=== PATIENT | male | born 1955 | race Caucasian/White ===

== ENCOUNTER 2025-04-05 08:12 | Emergency (ER) | payer OTHER, BC ==
[2025-04-05] MEDS ORDERED: NA CHLORIDE 0.9% 1,000 ML ONE ×2 (08:40→10:03)
--- NOTE | 2025-04-05 08:55 | RAD REPORT ---
EXAMINATION: Head C Spine Mpr Wo Con CLINICAL INDICATION: Male, 69 years old. TRAUMA TECHNIQUE: Axial CT images from the skull base to the vertex without intravenous contrast. Axial CT i mages through the cervical spine were obtained without intravenous contrast. Sagittal and coronal reformatted images were created from the data set. Coronal and sagittal reformatted images were creat ed from the data set. One or more of the following dose reduction techniques were used: Automated exposure control, adjustment of the mA and/or kV according to patient size, and/or iterative reconstr uction. Unless otherwise specified, incidental findings do not require dedicated imaging follow-up. [id number]. COMPARISON: No prior exams FINDINGS: Head: INTRACRANIAL: No acute intracranial hemorrhage. No acute large vascular territory infarct. No hydroce phalus. No mass effect or midline shift. No significant white matter disease. VASCULATURE: No visualized abnormalities in the arteries or dural venous sinuses. SCALP/SKULL: No calvarial fracture identified. No acute soft tissue abnormality. SINUSES: The visualized paranasal sinuses are mostly clear. No significant mastoid fluid. Cervical spine: ALIGNMENT: The cervical spine has normal alignment without scoliosis or spondylolisthesis. BONE: Vertebral body heights are maintained. No aggressive osseous lesions. DEGENERATIVE: Multilevel cervical spondylosis with evidence of bilateral neural foraminal narrowing. No high grade central spinal stenosis. SOFT TISSUE: No significant abnormalities in the soft tissue of the neck. The visualized lung apices are clear. IMPRESSION: No acute intracranial abnormality. No acute fracture or traumatic malalignment of the cervical spine.
[2025-04-05 09:03] LABS: Absolute Lymphocytes (CBC) 1.1 K/uL (0.7-4.9); Hematocrit 47.2 % (39.6-49.0); Hemoglobin 16.0 g/dL (13.6-17.9); MCH 28.2 pg (27.0-35.0); MCHC 33.9 g/dL (32.0-36.0); MCV 83.0 fL (80-100); MPV 8.6 fL (7.6-11.3); Nucleated RBC Absolute Count 0.0 (0-0); Nucleated Red Blood Cells % 0.1 % (0-0); RBC Red Blood Cell Count 5.68 M/uL (4.33-5.43); White Blood Count 4.80 thou/uL (4.3-10.9)
--- NOTE | 2025-04-05 09:07 | RAD REPORT ---
EXAMINATION: Shoulder Left 2+ Views CLINICAL INDICATION: Male, 69 years old. PAIN COMPARISON: No prior exam. FINDINGS: No acute fracture. No malalignment/dislocation. Mild left glenohumeral joint spurring. Mild left AC joint spurring.. Other: n/a IMPRESSION: No acute osseous abnormality.
[2025-04-05 09:22] LABS: ALT/SGPT 26 U/L (16-61); Albumin 3.5 g/dL (3.4-5.0); Albumin/Globulin Ratio 1.0 (1.1-1.8); Alkaline Phosphatase 62 U/L (45-117); Anion Gap 7.5 mEq/L (5.0-15.0); BUN Blood Urea Nitrogen 21 mg/dL (7-18); Globulin 3.6 g/dL (2.3-3.5); Glucose Level 166 mg/dL (74-106); Potassium 3.5 mEq/L (3.5-5.1); Troponin High Sensitivity 8.6 pg/mL (<58.9)
[2025-04-05 09:23] LABS: AST/SGOT < 10 U/L (15-37)
--- NOTE | 2025-04-05 10:32 | EDPHYS ---
Physician Documentation [facility] Name: Isaac Estrada Age: 69 yrs Sex: Male : 1955 Arrival Date: 04/05/2025 Time: 08:12 Bed 7 Private MD: ED Physician Marcus Root HPI: 04/05 11:00 This 69 yrs old Male presents to ER via Ambulatory with complaints of Syncope.dr5 11:00 Details of fall: The patient fell from an upright position, while walking. Onset: The dr5 symptoms/episode began/occurred acutely. Patient is a 18-year-old male with no past medical history coming in for syncope that occurred this morning. Patient reports that he was working outside all day yesterday and also went on a bike ride. Patient states that he stood up quickly this morning and had syncopal episode while walking. Patient reports he hit his left shoulder and his head. Patient denies dizziness, headache, visual changes, nausea, vomiting, diarrhea. Patient does report that he became diaphoretic after falling.. Historical: - Allergies: 08:27 No Known Allergies; bp - Home Meds: 08: Flomax [Active]; bp - PMHx: : None; bp - PSHx: : Cholecystectomy; bp - Immunization history:: Adult Immunizations unknown. - Infectious Disease History:: Denies. - Social history:: Smoking status: unknown. ROS: 11:00 Constitutional: as per hpi dr5 Exam: 11:00 Constitutional: This is a well developed, well nourished patient who is awake, alert, dr5 and in no acute distress. Head/Face: Normocephalic, atraumatic. Eyes: Pupils equal round and reactive to light, extra-ocular motions intact. Lids and lashes normal. Conjunctiva and sclera are non-icteric and not injected. Cornea within normal limits. Periorbital areas with no swelling, redness, or edema. Neck: Trachea midline, no thyromegaly or masses palpated, and no cervical lymphadenopathy. Supple, full range of motion without nuchal rigidity, or vertebral point tenderness. No Meningismus. Chest/axilla: Normal chest wall appearance and motion. Nontender with no deformity. No lesions are appreciated. Cardiovascular: Regular rate and rhythm with a normal S1 and S2. Normal PMI, no JVD. No pulse deficits. Respiratory: Lungs have equal breath sounds bilaterally, clear to auscultation. No rales, rhonchi or wheezes noted. No increased work of breathing, no retractions or nasal flaring. Abdomen/GI: Soft, non-tender, non-distended Back: No spinal tenderness. No costovertebral tenderness. Full range of motion. Skin: Warm, dry with normal turgor. Normal color with no rashes, no lesions, and no evidence of cellulitis. MS/ Extremity: Pulses equal, no cyanosis. Neurovascular intact. Full, normal range of motion. Neuro: Awake and alert, GCS 15, oriented to person, place, time, and situation. Cranial nerves II-XII grossly intact. Motor strength 5/5 in all extremities. Sensory grossly intact. Cerebellar exam normal. Normal gait. Vital Signs: 08:27 BP 135 / 83; Pulse 67; Resp 16; Pulse Ox 98% on R/A; Weight 108.86 kg; Height 6 ft. 4 bp in. ; Pain 3/10; 09:13 BP 139 / 76; Pulse 65; Resp 16; Pulse Ox 95% on R/A; iw 10:02 BP 124 / 81; Pulse 63; Resp 16; Pulse Ox 97% on R/A; iw 11:13 BP 129 / 71; Pulse 61; Resp 16; Pulse Ox 99% on R/A; iw 08:27 Body Mass Index 29.21 (108.86 kg, 193.04 cm) bp 08:27 Pain Scale: Adult bp MDM: 08:20 Medical Screening Exam initiated dr5 11:00 Differential diagnosis: abrasion, closed head injury, contusion, fracture, sprain, dr5 strain. Data reviewed: vital signs, nurses notes, lab test result(s), cardiac enzymes, troponin i, CBC, white blood cell count, hemoglobin, hematocrit, platelets, electrolytes, sodium, potassium, chloride, serum bicarbonate, BUN, creatinine, serum glucose, EKG, radiologic studies, CT scan, plain films. Consideration of Admission/Observation Escalation of care including admission/observation considered. Escalation considered patient found to have intracranial hemorrhage or any abnormality noted on his CT scan. I considered the following discharge prescriptions or medication management in the emergency department I discussed and recommended Over The Counter medications, Medications were administered in the Emergency Department. See MAR. Historians other than the Patient: Daughter/Son: Daughter. Care significantly affected by the following Social Determinants of Health: Poor access to healthcare and/or lack of insurance, Poor access to transportation, Problems related to employment. Counseling: I had a detailed discussion with the patient and/or guardian regarding the historical points, exam findings, and any diagnostic results supporting the discharge/admit diagnosis, the presence of at least one elevated blood pressure reading (>120/80) during this emergency department visit, lab results, radiology results, the need for outpatient follow up, for definitive care, a family practitioner, to return to the emergency department if symptoms worsen or persist or if there are any questions or concerns that arise at home. Medication response: Normal saline. Response to treatment: the patient's symptoms have resolved after treatment, the patient's condition has returned to base line. Special discussion: Based on the patient's history, exam and DX evaluation, there is no indication for emergent intervention or inpatient TX. It is understood by the patient/guardian that if the SXs persist or worsen they need to return immediately for re-evaluation. I discussed with the patient/guardian in detail that at this point there is no indication for admission to the hospital. It is understood, however, that if the symptoms persist or worsen the patient needs to return immediately for re-evaluation. Based on the history and exam findings, there is no indication for further emergent testing or inpatient evaluation. I discussed with the patient/guardian the need to see the neurologist for further evaluation of the symptoms. ED course: Fall likely from vasovagal and dehydration. No abnormalities noted on lab work, CT, or x-ray. Patient reports he is feeling much better after fluids. Patient has no complaints. Patient ambulated with steady gait on discharge. Recommended staying hydrated today, no exertion or work. Request answered. Strict ER precautions given. 04/05 08:34 Order name: CBC with Diff; Complete Time: dr5 04/05 08:34 Order name: Troponin HS; Complete Time: dr5 04/05 08:34 Order name: CMP; Complete Time: dr5 04/05 08:34 Order name: CT Head C Spine; Complete Time: dr5 04/05 08:34 Order name: Shoulder Left (2 View) XRAY; Complete Time: dr5 04/05 08:34 Order name: EKG; Complete Time: dr5 04/05 08:34 Order name: Cardiac monitoring; Complete Time: 09:14 dr5 04/05 08:34 Order name: EKG - Nurse/Tech; Complete Time: 09:03 dr5 04/05 08:34 Order name: IV Saline Lock; Complete Time: dr5 04/05 08:34 Order name: Labs collected and sent; Complete Time: dr5 04/05 08:34 Order name: O2 Per Protocol; Complete Time: dr5 04/05 08:34 Order name: O2 Sat Monitoring; Complete Time: dr5 EC:00 Rate is 71 beats/min. Rhythm is regular. QRS [place] is Normal. [place] interval is normal at dr5 168 msec. QRS interval is normal at 98 msec. QT interval is normal at 424 msec. Administered Medications: : Drug: NS 0.9% IV 1000 ml IV at 1000 ml once; to be given as a bolus over 60 minutes iw Route: IV; Rate: 1000 ml; Site: right antecubital; 11:14 Follow up: IV Status: Completed infusion iw 10:08 Drug: NS 0.9% IV 1000 ml IV at 1000 ml once; to be given as a bolus over 60 minutes iw Route: IV; Rate: 1000 ml; Site: right antecubital; 11:14 Follow up: IV Status: Completed infusion iw Disposition: 11:29 Co-signature as Attending Physician, Marcus Root MD I agree with the assessment and jr plan of care. Disposition Summary: 04/05/25 10:32 Discharge Ordered Notes: Location: Home dr5 Condition: Stable dr5 Diagnosis - Dehydration dr5 - Heat syncope dr5 Followup: dr5 - With: Emergency Department - When: As needed - Reason: Worsening of condition Followup: dr5 - With: Private Physician - When: 1 - 2 days - Reason: Recheck today's complaints, Continuance of care, Re-evaluation by your physician Discharge Instructions: - Discharge Summary Sheet dr5 - Rehydration, Adult dr5 Forms: - Medication Reconciliation Form dr5 - Patient Portal Instructions dr5 - Leadership Thank You Letter dr5 Signatures: Dispatcher [employer] Allegra Carlson RN RN iw Eugenio Abdul RN RN bp Rosillo, Jose, MD MD [id number] Reji Ravi, BURLAP WORKER-C BURLAP WORKER-Cdr5 Corrections: (The following items were deleted from the chart) 08:27 08:27 Home Meds: None; bp bp 08:29 08:27 PSHx: None; bp bp 08:34 08:34 Shoulder Left 2 View+RAD.RAD.[email or web address] ordered. EDMS EDMS
--- NOTE | 2025-04-05 10:32 | ER ---
Nurse's Notes [facility] Name: Isaac Estrada Age: 69 yrs Sex: Male : 1955 Arrival Date: 04/05/2025 Time: 08:12 Bed 7 Private MD: Diagnosis: Dehydration;Heat syncope Presentation: 04/05 08:26 Chief complaint: Syncopal episode this morning, spent all day yesterday in the heat bp working in yard and riding bike. Coronavirus screen: At this time, the client does not indicate any symptoms associated with coronavirus-19. 08:26 Method Of Arrival: Ambulatory bp 08:27 Ebola Screen: No symptoms or risks identified at this time. Initial Sepsis Screen: Does bp the patient meet any 2 criteria? No. Patient's initial sepsis screen is negative. Does the patient have a suspected source of infection? No. Patient's initial sepsis screen is negative. Risk Assessment: Do you want to hurt yourself or someone else? Patient reports no desire to harm self or others. Onset of symptoms was April 05, 2025. 08:27 Acuity: RONNIE 3 bp Historical: - Allergies: 08:27 No Known Allergies; bp - Home Meds: 08:27 Flomax [Active]; bp - PMHx: 08:27 None; bp - PSHx: 08:29 Cholecystectomy; bp - Immunization history:: Adult Immunizations unknown. - Infectious Disease History:: Denies. - Social history:: Smoking status: unknown. Screenin:58 [facility] ED Fall Risk Assessment (Adult) History of falling in the last 3 months, iw including since admission No falls in past 3 months (0 pts) Confusion or Disorientation No (0 pts) Intoxicated or Sedated No (0 pts) Impaired Gait No (0 pts) Mobility Assist Device Used No (0 pt) Altered Elimination No (0 pt) Score/Fall Risk Level 0 - 2 = Low Risk Oriented to surroundings, Maintained a safe environment. Abuse screen: Denies threats or abuse. Nutritional screening: No deficits noted. Tuberculosis screening: No symptoms or risk factors identified. Assessment: 08:57 General: Appears in no apparent distress. Behavior is calm, cooperative, appropriate iw for age. Pain:. 08:57 Pain: Complains of pain in anterior aspect of left shoulder and posterior aspect of iw left shoulder. Neuro: Level of Consciousness is awake, alert, obeys commands, Oriented to person, place, time, situation, Moves all extremities. Full function. Neuro: Reports a syncopal episode Denies blurred vision dizziness. Cardiovascular: Denies chest pain, Patient's skin is warm and dry. Respiratory: Respiratory effort is even, unlabored, Respiratory pattern is regular, symmetrical. GI: Abdomen is non-distended. Derm: Skin is intact, is healthy with good turgor. Musculoskeletal: Range of motion: intact in all extremities. 09:15 Reassessment: Patient appears in no apparent distress at this time. Patient and/or iw family updated on plan of care and expected duration. Pain level reassessed. Patient is alert, oriented x 3, equal unlabored respirations, skin warm/dry/pink. 10:51 Reassessment: Patient appears in no apparent distress at this time. Patient and/or iw family updated on plan of care and expected duration. Pain level reassessed. d/c pending completion of IV fluids. Vital Signs: 08:27 BP 135 / 83; Pulse 67; Resp 16; Pulse Ox 98% on R/A; Weight 108.86 kg; Height 6 ft. 4 bp in. ; Pain 3/10; 09:13 BP 139 / 76; Pulse 65; Resp 16; Pulse Ox 95% on R/A; iw 10:02 BP 124 / 81; Pulse 63; Resp 16; Pulse Ox 97% on R/A; iw 11:13 BP 129 / 71; Pulse 61; Resp 16; Pulse Ox 99% on R/A; iw 08:27 Body Mass Index 29.21 (108.86 kg, 193.04 cm) bp 08:27 Pain Scale: Adult bp ED Course: 08:19 Patient arrived in ED. gl 08:20 Reji Ravi, ALFREDO is PHCP. dr5 08:20 Marcus Root MD is Attending Physician. dr5 08:28 Triage completed. bp 08:35 Allegra Prajapati, ROSALINDA is Primary Nurse. iw 08:42 CT Head C Spine In Process Unspecified. EDMS 08:45 Initial lab(s) drawn, by me, sent to lab. Inserted saline lock: 20 gauge in right iw antecubital area, using aseptic technique. Blood collected. Flushed with 10 mL NS. 08:54 Shoulder Left (2 View) XRAY In Process Unspecified. EDMS 08:59 Patient has correct armband on for positive identification. Provided Education on: labs iw wait time. Client placed on continuous cardiac and pulse oximetry monitoring. NIBP monitoring applied. residential monitor on. Client placed on continuous cardiac and pulse oximetry monitoring. NIBP monitoring applied. residential monitor on. 08:59 Arm band placed on. iw 11:13 No provider procedures requiring assistance completed. IV discontinued, intact, iw bleeding controlled, No redness/swelling at site. Pressure dressing applied. Administered Medications: 08:57 Drug: NS 0.9% IV 1000 ml IV at 1000 ml once; to be given as a bolus over 60 minutes iw Route: IV; Rate: 1000 ml; Site: right antecubital; 11:14 Follow up: IV Status: Completed infusion iw 10:08 Drug: NS 0.9% IV 1000 ml IV at 1000 ml once; to be given as a bolus over 60 minutes iw Route: IV; Rate: 1000 ml; Site: right antecubital; 11:14 Follow up: IV Status: Completed infusion iw Medication: 08:58 VIS not applicable for this client. iw Outcome: 10:32 Discharge ordered by MD. dr5 11:13 Discharged to home ambulatory, iw 11:13 Condition: good 11:13 Discharge instructions given to patient, family, Instructed on discharge instructions, follow up and referral plans. Demonstrated understanding of instructions, follow-up care, 11:14 Patient left the ED. iw Signatures: Dispatcher [employer] EDMS Allegra Prajapati RN RN iw Peltier, Brian, RN RN bp Reji Ravi, CASTING WHEEL OPERATOR-C CASTING WHEEL OPERATOR-Cdr5 Grecia Rizo, Reg Reg gl Corrections: (The following items were deleted from the chart) 08:27 08:27 Home Meds: None; bp bp 08:29 08:27 BP 135 / 83; Pulse 67bpm; Resp 16bpm; Pulse Ox 98% RA; Pain 3/10, Adult; bp bp 08:29 08:27 PSHx: None; bp bp 08:58 08:57 General: Appears in no apparent distress. Behavior is calm, cooperative, iw appropriate for age, iw
[2025-04-05 11:23] VITALS: BP 129/71; O2SAT 99
== END 2025-04-05 11:14 | disposition home or self-care (01) ==
LOC: ER 08:12
DX: E86.0 Dehydration (principal); T67.1XXA Heat syncope, initial encounter
CPT/HCPCS: 96361; 93005; 85025; 36415; 84484; 80053; 70450; 72125; 73030; 96360; 99285; J7030 ×2